=== PATIENT | female | born 1960 | race Caucasian/White ===

== ENCOUNTER 2017-03-06 11:22 | Outpatient (RCR) | payer BC ==
[2017-03-06 11:30] LABS: BASOPHILS % (AUTO) 1 % (0-10); EOSINOPHILS # (AUTO) 0.1 10^3/uL (0.0-0.3); EOSINOPHILS % (AUTO) 2 % (0-10); LYMPHOCYTES # (AUTO) 2.6 X 10^3 (1.0-4.0); LYMPHOCYTES % (AUTO) 33 % (12-44); MEAN CORPUSCULAR HEMOGLOBIN 30 PG (25-34); MEAN CORPUSCULAR HGB CONC 33 G/DL (32-36); MEAN CORPUSCULAR VOLUME 92 FL (80-99); MEAN PLATELET VOLUME 10.4 FL (7.4-10.4); MONOCYTES # (AUTO) 0.9 X 10^3 (0.0-1.0); MONOCYTES % (AUTO) 11 % (0-12); NEUTROPHILS # (AUTO) 4.3 X 10^3 (1.8-7.8); NEUTROPHILS % (AUTO) 54 % (42-75); PLATELET COUNT 250 10^3/uL (130-400); RED BLOOD COUNT 5.19 10^6/uL (4.35-5.85); RED CELL DISTRIBUTION WIDTH 13.8 % (10.0-14.5); WHITE BLOOD COUNT 7.9 10^3/uL (4.3-11.0)
[2017-03-06 11:59] LABS: ALANINE AMINOTRANSFERASE 23 U/L (0-55); ALBUMIN 4.4 GM/DL (3.2-4.5); ANION GAP 6 MMOL/L (5-14); ASPARTATE AMINO TRANSFERASE 23 U/L (5-34); BILIRUBIN,TOTAL 0.4 MG/DL (0.1-1.0); BLOOD UREA NITROGEN 11 MG/DL (7-18); BUN/CREATININE RATIO 15; CALCIUM 9.8 MG/DL (8.5-10.1); CARBON DIOXIDE 32 MMOL/L (21-32); CHLORIDE 105 MMOL/L (98-107); CREATININE SERUM 0.75 MG/DL (0.60-1.30); GFR ESTIMATED > 60; GLUCOSE 98 MG/DL (70-105); POTASSIUM 4.2 MMOL/L (3.6-5.0); SODIUM 143 MMOL/L (135-145); TOTAL PROTEIN 7.2 GM/DL (6.4-8.2)
== END 2017-05-11 | disposition home or self-care (01) ==
LOC: ONC 11:22
PROVIDERS: ATTEND Internal Medicine Hematology & Oncology
DX: Z08 Encounter for follow-up examination after completed treatment for malignant neoplasm (principal); Z85.3 Personal history of malignant neoplasm of breast; Z90.13 Acquired absence of bilateral breasts and nipples; I10 Essential (primary) hypertension; Z79.899 Other long term (current) drug therapy
CPT/HCPCS: 36415; 80053; 85025; 99213

== ENCOUNTER 2019-04-27 13:47 | Outpatient (RCR) | payer BC ==
[2019-04-27 14:54] LABS: BASOPHILS % (AUTO) 0 % (0-10); EOSINOPHILS # (AUTO) 0.1 10^3/uL (0.0-0.3); EOSINOPHILS % (AUTO) 2 % (0-10); HEMATOCRIT 47 % (35-52); HEMOGLOBIN 15.5 G/DL (11.5-16.0); LYMPHOCYTES # (AUTO) 2.5 X 10^3 (1.0-4.0); LYMPHOCYTES % (AUTO) 31 % (12-44); MEAN CORPUSCULAR HEMOGLOBIN 30 PG (25-34); MEAN CORPUSCULAR HGB CONC 33 G/DL (32-36); MEAN CORPUSCULAR VOLUME 90 FL (80-99); MONOCYTES # (AUTO) 0.8 X 10^3 (0.0-1.0); MONOCYTES % (AUTO) 10 % (0-12); NEUTROPHILS # (AUTO) 4.5 X 10^3 (1.8-7.8); NEUTROPHILS % (AUTO) 58 % (42-75); PLATELET COUNT 232 10^3/uL (130-400); RED CELL DISTRIBUTION WIDTH 13.2 % (10.0-14.5); WHITE BLOOD COUNT 7.9 10^3/uL (4.3-11.0)
[2019-04-27 15:06] LABS: ALANINE AMINOTRANSFERASE 15 U/L (0-55); ALBUMIN 4.4 GM/DL (3.2-4.5); ALKALINE PHOSPHATASE 76 U/L (40-136); BILIRUBIN,TOTAL 0.4 MG/DL (0.1-1.0); BUN/CREATININE RATIO 15; CALCIUM 10.2 MG/DL (8.5-10.1); CARBON DIOXIDE 24 MMOL/L (21-32); CHLORIDE 105 MMOL/L (98-107); CREATININE SERUM 0.74 MG/DL (0.60-1.30); GFR ESTIMATED > 60; GLUCOSE 120 MG/DL (70-105); SODIUM 139 MMOL/L (135-145); TOTAL PROTEIN 7.4 GM/DL (6.4-8.2)
== END 2019-07-26 | disposition home or self-care (01) ==
LOC: ONC 13:47
PROVIDERS: ATTEND Internal Medicine Hematology & Oncology
DX: Z08 Encounter for follow-up examination after completed treatment for malignant neoplasm (principal); Z85.3 Personal history of malignant neoplasm of breast; Z90.13 Acquired absence of bilateral breasts and nipples; I10 Essential (primary) hypertension; Z79.899 Other long term (current) drug therapy
CPT/HCPCS: 36415; 80053; 84443; 85025; 99213

== ENCOUNTER → 2019-04-28 | Outpatient (CLI) | payer BC ==
[2019-04-28 12:13] LABS: CHOLESTEROL 227 MG/DL (< 200); HDL CHOLESTEROL 39 MG/DL (40-60); TRIGLYCERIDES 99 MG/DL (<150); VLDL CHOLESTEROL 20 MG/DL (5-40)
== END ==
LOC: CARD 10:19
PROVIDERS: ATTEND Internal Medicine Cardiovascular Disease
DX: I08.0 Rheumatic disorders of both mitral and aortic valves (principal); E11.9 Type 2 diabetes mellitus without complications; I10 Essential (primary) hypertension; K21.0 Gastro-esophageal reflux disease with esophagitis; Z72.0 Tobacco use
CPT/HCPCS: 36415; 80061; 93306

== ENCOUNTER → 2019-04-29 | Outpatient (CLI) | payer BC ==
[~2019-04-29] MED LIST: CATHETER FLUSH 10 ML SYR IV PRN; REGADENOSON 0.4 MG/5 ML SYR (LEXISCAN) IV ONE
[2019-04-29 09:59] VITALS: BP 121/61
[2019-04-29 10:06] VITALS: BP 145/62
--- NOTE | 2019-04-29 17:26 | STRESS TEST ---
DATE OF SERVICE: 04/29/2019 EXERCISE MYOVIEW STRESS TEST REPORT REFERRING PHYSICIAN: Vikki Will MD Baseline heart rate is 70. Baseline blood pressure 120/60. Baseline EKG is sinus rhythm with no ischemic changes. In summary, the patient was injected with 10.9 mCi of technetium-99 Myoview and the resting images were obtained. Then, the patient was started on the treadmill, but was unable to exercise. Test was terminated and converted to Lexiscan Myoview stress test. Received 0.4 mg of Lexiscan, followed by 28.6 mCi of technetium-99 Myoview. Throughout the test, there were no EKG changes. The resting and stress images were reviewed and compared in the short axis, horizontal long axis, and vertical long axis views. Review of the images showed mild decreased uptake involving the inferior wall and inferolateral wall, which is fixed. No significant ischemia was noted. SSS is 0. TID value 1.05. On the gated images, the left ventricle appeared to be normal size with normal contractility. Calculated ejection fraction 50%. IN CONCLUSION: 1. The patient tolerated the Lexiscan well. 2. Diaphragmatic attenuation with mild decreased uptake at the inferior wall. No significant ischemia or infarction on SPECT images. 3. Normal left ventricular size with normal contractility. Calculated ejection fraction 50%. Job ID: [id number] DocumentID: [id number] Dictated Date: 04/29/2019 13:50:32 Channel Turner Date: 04/29/2019 17:25:46 Dictated By: TARI CAMACHO MD
== END ==
LOC: CARD 08:19
PROVIDERS: ATTEND Internal Medicine Cardiovascular Disease
DX: K21.0 Gastro-esophageal reflux disease with esophagitis (principal); E11.9 Type 2 diabetes mellitus without complications; I10 Essential (primary) hypertension; R07.89 Other chest pain; Z72.0 Tobacco use
CPT/HCPCS: 78452; 93017

== ENCOUNTER 2022-10-16 08:07 | Outpatient (CLI) | payer BC ==
[2022-10-15 08:15] VITALS: BP 124/70
[~2022-10-16] VITALS: Ht 160 cm; Wt 79.5 kg
[2022-10-16] VITALS (13 sets, daily range): BP systolic 112–136; BP diastolic 60–96
[2022-10-16] MEDS ORDERED: NS IV 1000 ML 1,000 ML IV STA (08:09)
[2022-10-16] MEDS ORDERED: MIDAZOLAM 2 MG/2 ML (VERSED) VIAL IVP ONE (08:15)
[2022-10-16] MEDS ORDERED: fentaNYL INJ 100 MCG/2 ML AMP IVP ONE (08:15)
[2022-10-16] MEDS ORDERED: LIDOCAINE 1% INJ 30 ML (XYLOCAINE) VIAL INJ ONE (08:15)
[2022-10-16 08:54] LABS: HEMATOCRIT 45 % (35-52); HEMOGLOBIN 14.4 g/dL (11.5-16.0); MEAN CORPUSCULAR HEMOGLOBIN 29 pg (25-34); MEAN CORPUSCULAR HGB CONC 32 g/dL (32-36); MEAN CORPUSCULAR VOLUME 90 fL (80-99); MEAN PLATELET VOLUME 10.5 fL (9.0-12.2); PLATELET COUNT 224 10^3/uL (130-400); WHITE BLOOD COUNT 5.8 10^3/uL (4.3-11.0)
[2022-10-16 09:13] LABS: PROTHROMBIN TIME PATIENT 13.3 SEC (12.2-14.7)
--- NOTE | 2022-10-16 11:21 | Pre-Op Note & Conscious Sedat ---
Pre-Operative Progress Note Date of Available H&P: Oct 16, 2022 Date H&P Reviewed: Oct 16, 2022 Time H&P Reviewed: 10:00 Pre-Op Diagnosis: RUL lung mass Conscious Sedation Pre-Proced Time 10:00 ASA Score 2 For ASA 3 and 4: Consider anesthesia and medical clearance. Also, for patients with a history of failed moderate sedation consider anesthesia. Airway Lungs Heart ASA score ASA 1: a normal healthy patient ASA 2: a patient with a mild systemic disease (mid diabetes, controlled hypertension, obesity ASA 3: a patient with a severe systemic disease that limits activity (angina, COPD, prior Myocardial infarction) ASA 4: a patient with an incapacitating disease that is a constant threat to life (CHF, renal failure) ASA 5: a moribund patient not expected to survive 24 hrs. (ruptured aneurysm) ASA 6: a declared brain- patient whose organs are being harvested. For emergent operations, add the letter E after the classification Mallampati Classification Grade 2 Sedation Plan Analgesia, Amnesia, Plan communicated to team members, Discussed options with patient/fam, Discussed risks with patient/fam The patient is an appropriate candidate to undergo the planned procedure, sedation, and anesthesia. The patient immediately re-assessed prior to indication. SHIMA GIRARD MD Oct 16, 2022 11:21
--- NOTE | 2022-10-16 11:40 | Diagnostic Imaging Report ---
INDICATION: Right lung mass. Patient presents for CT-guided lung mass biopsy. TECHNIQUE: All CT scans use one or more of the following dose optimizing techniques: automated exposure control, MA and/or KvP adjustment based on patient size and exam type or iterative reconstruction. The patient was brought to the CT suite placed on table in the supine position. Axial imaging through the chest was performed to evaluate appropriate entry site. The procedure was performed utilizing conscious sedation was radiology nursing and constant monitoring. Patient was given a total of 50 micrograms of fentanyl intravenously and 1 mg of Versed intravenously. Total procedural time is approximately 8 minutes. Right chest was prepped and draped usual sterile fashion. Small amount of 1% lidocaine was utilized for local anesthesia. 18-gauge coaxial Temno needle was advanced and placed with its tip within the spiculated lesion in the right upper lobe anteriorly. 3 core biopsies were obtained. After the 3rd core biopsy, patient started to develop hemoptysis, therefore, the procedure was terminated. The needle was removed and hemostasis was obtained using manual compression. Patient was placed on her right side until the hemoptysis significantly decreased. Patient was then placed back in a supine position axial imaging through the chest was performed. Postprocedure images are without evidence of pneumothorax. There is some perilesional pulmonary hemorrhage present. IMPRESSION: Successful CT-guided right upper lobe lung mass biopsy, utilizing conscious sedation. Pathology results are currently pending. Dictated by: Dictated on workstation # [id number]
--- NOTE | 2022-10-16 12:59 | Diagnostic Imaging Report ---
Indication: Right lung mass, status post CT-guided biopsy. Portable radiograph of the chest was obtained. There is infiltrate throughout the right lung and a small amount of right pleural fluid. No definite pneumothorax is seen, status post right lung biopsy. There are surgical clips in the left axilla. IMPRESSION: No evidence of pneumothorax, status post right lung biopsy. Dictated by: Dictated on workstation # [id number]
== END 2022-10-16 13:15 | disposition home or self-care (01) ==
LOC: SDC 08:07
PROVIDERS: ATTEND Family Medicine
DX: R91.8 Other nonspecific abnormal finding of lung field (principal); Z90.2 Acquired absence of lung [part of]
CPT/HCPCS: 71045; 77012; 85027; 85610; 85730; 99156; C2613; 36415

== ENCOUNTER 2022-11-27 05:41 | Outpatient (CLI) | payer BC ==
[~2022-11-27] VITALS: Ht 160 cm; Wt 78.7 kg
[2022-11-27] MEDS ORDERED: PANT40TA52 PO (09:24)
[2022-11-27] MEDS ORDERED: POLY17PO6 PO (09:24)
[2022-11-27] MEDS ORDERED: ROSU10TA28 PO (09:24)
[2022-11-27] MEDS ORDERED: ONDA-106 PO (09:24)
[2022-11-27] MEDS ORDERED: [UNRECOGNIZED DRUG - CODE] PO (09:24)
[2022-11-27] MEDS ORDERED: ATEN25TA PO (09:24)
[2022-11-27] MEDS ORDERED: RT-ALBUINH INH (09:24)
[2022-11-27] MEDS ORDERED: FURO20TA4 PO (09:24)
[2022-11-27] MEDS ORDERED: LEVO25CA4 PO (09:24)
[2022-11-27] MEDS ORDERED: OXC5T PO (09:24)
== END 2022-11-27 09:52 | disposition home or self-care (01) ==
LOC: PREOP 05:41
PROVIDERS: ATTEND Surgery
DX: Z01.818 Encounter for other preprocedural examination (principal)

== ENCOUNTER 2022-11-28 08:12 | Day surgery (SDC) | payer BC ==
[2022-11-28] VITALS (8 sets, daily range): BP systolic 101–126; BP diastolic 59–67
[~2022-11-28] VITALS: Ht 160 cm; Wt 78.7 kg
[~2022-11-28 08:12] MED LIST changes: +ATEN25TA PO; -CATHETER FLUSH 10 ML SYR IV PRN; +FURO20TA4 PO; +LEVO25CA4 PO; +ONDA-106 PO; +OXC5T PO; +PANT40TA52 PO; +POLY17PO6 PO; -REGADENOSON 0.4 MG/5 ML SYR (LEXISCAN) IV ONE; +ROSU10TA28 PO; +RT-ALBUINH INH; +[UNRECOGNIZED DRUG - CODE] PO
--- NOTE | 2022-11-28 08:44 | Progress Note-Pre Operative ---
Pre-Operative Progress Note Date H&P Reviewed: Nov 28, 2022 Time H&P Reviewed: 08:43 History & Physical: H&P Reviewed, Patient Examed, No changes noted Pre-Operative Diagnosis: SMALL CELL LUNG CANCER CHARLES PADILLA DO Nov 28, 2022 08:44
[2022-11-28] MEDS ORDERED: HEParin (CENTRAL IV FLUSH) 500 UNIT/5 ML SYR ONE (09:11)
[2022-11-28] MEDS ORDERED: BUP/EPI 0.5% 1:200,000 (SENSORCAINE) 30 ML VIAL ONE (09:11)
[2022-11-28] MEDS ORDERED: 0.9% SODIUM CHLORIDE PF INJ 20 ML VIAL ONE (09:11)
[2022-11-28] MEDS ORDERED: ceFAZolin INJECTION 2,000 MG in NS (IVPB) 50 ML IV ONE (09:15)
[2022-11-28] MEDS ORDERED: LACTATED RINGERS 1,000 ML IV PRN (09:15)
[2022-11-28] MEDS ORDERED: PROPOFOL INJECTION 50 ML IV ONE (09:17)
[2022-11-28] MEDS ORDERED: MIDAZOLAM 2 MG/2 ML (VERSED) VIAL ONE (09:18)
[2022-11-28] MEDS ORDERED: HEParin (CENTRAL IV FLUSH) 500 UNIT/5 ML SYR IV ONE (09:22)
[2022-11-28] MEDS ORDERED: BUP/EPI 0.5% 1:200,000 (SENSORCAINE) 30 ML VIAL IJ ONE (09:23)
[2022-11-28] MEDS ORDERED: 0.9% SODIUM CHLORIDE PF INJ 20 ML VIAL IV ONE (09:24)
--- NOTE | 2022-11-28 10:24 | Discharge Inst-Simple/Standard ---
Discharge Inst-Standard Patient Instructions/Follow Up Plan of Care/Instructions/FU: 2 weeks Stacy Activity as Tolerated: No Discharge Diet: Regular Diet Other Inst to Patient Follow up Appt: Make appointment for 2 week. Instructions: No lifting greater than 10 pounds. No strenuous activity. May shower in 24 hours, no tub bath or soaking. Use incentive spirometer at home as directed. No Smoking Skin/Wound Care: You have special glue over your incision that will fall off on it's own. Ice pack on 15 min and off 30 min repeat for first 48 hours. This reduces swelling and discomfort. Symptoms to Report: Appetite Changes, Extremity Discoloration, Numbness/Tingling, Swelling Increased, Bleeding Excessive, Eyesight Changes, Pain Increased, Urine Color Change, Constipation(Persistent), Fever over 101 degree F, Pain/Pressure in chest, Urinating Difficulty, Cough Up/Vomit Blood, Heart Beat Irreg/Pounding, Pain/Pressure in jaw, Vaginal Bleeding Increase, Cramps in feet or legs, Lightheadedness, Pain/Pressure in shoulder, Diarrhea(Persistent), Memory Changes Suddenly, Questions/Concerns, Weight gain consecutive days, Dizziness/Fainting, Nausea/Vomiting, Shortness of Breath, Weight gain over 2 pounds If questions or concerns contact your physician Or seek help at emergency department. CHARLES PADILLA DO Nov 28, 2022 10:24
--- NOTE | 2022-11-28 10:26 | Progress Note-Post Operative ---
Post-Operative Progess Note Surgeon (s)/Dispatcher Chief Oil (s) Surgeon CHARLES PADILLA DO Dispatcher Chief Oil: na Pre-Operative Diagnosis SMALL CELL LUNG CANCER Post-Operative Diagnosis same Procedure & Operative Findings Date of Procedure 11/28/22 Procedure Performed/Findings PROCEDURE: Right internal jugular port placement using ultrasound guidance. COMPLICATIONS: None. INDICATIONS: The patient is a 62 year old female with small cell lung cancer metastatic. Patient understands the risks and benefits of port placement and wished to proceed with the procedure. Consent was signed on the chart. PROCEDURE: The patient was taken to the operating suite, was prepped and draped in the sterile fashion. A surgical pause was performed. Ultrasound was used to locate the internal jugular vein. Once located anesthetic was infiltrated above it. Using micro-access kit, the right internal vein was accessed. Dark nonpulsatile blood was withdrawn. The wire was inserted. Fluoroscopy assured proper placement. The needle was removed. The micro-access dilator was advanced over the wire and the wire was removed. The regular wire was inserted and fluoroscopy assured proper placement. The wire was then secured. Local anesthetic was used to anesthetize from the neck for tunneling down to the right chest and for pocket creation. A 15 blade scalpel was used to make an incision over the right chest. Cautery was used to dissect down to the pectoral fascia. A pocket was created with blunt dissection. The dilator sheath was then advanced over the wire under fluoroscopy and the dilator and wire were removed. The Groshong catheter was inserted through the sheath and the sheath was then removed. The Groshong wire was removed. The catheter was then tunneled to the right chest pocket. Fluoroscopy was used to cut to length and this was then attached to the port which was then placed within the pocket. The port was then accessed without difficulty. It was then flushed with saline and then heparin. The subcutaneous tissues were then reapproximated using 3-0 Vicryl. The areas were then washed and dried. Skin Affix was placed over incision. The insertion point of the neck Skin Affix was placed over the incision. The patient tolerated the procedure well without complication and was taken to recovery room in stable condition. Chest x-ray is pending. Anesthesia Type mac c local Estimated Blood Loss Estimated blood loss (mL): minimal Specimens/Packing Specimens Removed CHARLES Nelson DO Nov 28, 2022 10:26
--- NOTE | 2022-11-28 10:31 | Anesthesia-General Post-Op ---
MAC Patient Condition Mental Status/LOC: Same as Preop Cardiovascular: Satisfactory Nausea/Vomiting: Absent Respiratory: Satisfactory Pain: Controlled Complications: Absent Post Op Complications Complications None Follow Up Care/Instructions Patient Instructions None needed. Anesthesiology Discharge Order Discharge Order Patient is doing well, no complaints, stable vital signs, no apparent adverse anesthesia problems. No complications reported per nursing. NORA GONSALVES CRNA Nov 28, 2022 10:31
[2022-11-28] MEDS ORDERED: ONDANSETRON 4 MG/2 ML (SDV) Z0FRAN IVP PRN (10:45)
[2022-11-28] MEDS ORDERED: HYDROmorphone 2 MG/ML VIAL (DILAUDID) IV ONE (10:45)
--- NOTE | 2022-11-28 11:19 | Diagnostic Imaging Report ---
CLINICAL INDICATION: Patient post port placement. EXAM: Portable chest x-ray upright view. COMPARISON: None. FINDINGS: Port-A-Cath seen overlying the right chest with tip overlying the expected region of distal superior vena cava. There is no pneumothorax. There is blunting of both costophrenic angle regions concerning for small bilateral pleural effusions (right side more than the left). There is cardiomegaly with no significant pulmonary vascular congestion. There is bibasilar atelectasis versus infiltrates. There are increased lung markings in the right lung apex which may be related to atelectasis or scarring, but infiltrates cannot be completely excluded. There are surgical clips overlying the left axillary region. There are degenerative spurs involving the thoracic spine. IMPRESSION: 1: There is a Port-A-Cath overlying the right chest with tip overlying the expected region of the distal superior vena cava. There is no pneumothorax. 2: There is concern for small bilateral pleural effusions with bibasilar atelectasis versus infiltrates. 3: There is atelectasis versus scarring or infiltrates involving the right lung apex. 4: There is cardiomegaly with no significant pulmonary vascular congestion. Dictated by: Dictated on workstation # [id number]
--- NOTE | 2022-11-28 16:19 | Diagnostic Imaging Report ---
INDICATION: Fluoroscopy for right chest wall port placement. FINDINGS: Fluoroscopy was provided in the OR during right chest wall port placement. 16 seconds of fluoroscopic time was utilized. A single image was obtained demonstrating right chest wall port with tip overlying the SVC. IMPRESSION: Fluoroscopy for right chest wall port placement. Dictated by: Dictated on workstation # [id number]
== END 2022-11-28 11:55 | disposition home or self-care (01) ==
LOC: SDC 08:12
PROVIDERS: ATTEND Surgery
DX: C34.90 Malignant neoplasm of unspecified part of unspecified bronchus or lung (principal); I87.2 Venous insufficiency (chronic) (peripheral); E11.9 Type 2 diabetes mellitus without complications; F17.210 Nicotine dependence, cigarettes, uncomplicated; Z85.3 Personal history of malignant neoplasm of breast; Z85.828 Personal history of other malignant neoplasm of skin; Z85.01 Personal history of malignant neoplasm of esophagus
CPT/HCPCS: 36561; 71045; 76000; 82947; 87081; C1788

== ENCOUNTER → 2023-05-31 | Outpatient (CLI) | payer BC ==
--- NOTE | 2023-05-31 13:11 | Diagnostic Imaging Report ---
INDICATION: Small cell lung carcinoma. Patient was administered 27.2 mCi technetium 99m MDP intravenously and whole-body imaging was performed after a three-hour delay. There is normal uptake of activity by the axial and appendicular skeleton. There is uptake by the kidneys with excretion to urinary bladder. No abnormal foci are identified to suggest osseous metastatic disease. IMPRESSION: No scintigraphic evidence of osseous metastatic disease. Dictated by: Dictated on workstation # [id number]
== END ==
LOC: CARD 08:18
PROVIDERS: ATTEND Nurse Practitioner Adult Health
DX: C34.2 Malignant neoplasm of middle lobe, bronchus or lung (principal); C77.1 Secondary and unspecified malignant neoplasm of intrathoracic lymph nodes; C79.51 Secondary malignant neoplasm of bone
CPT/HCPCS: 78306; A9503